=== PATIENT | female | born 1980 | race Caucasian/White ===

== ENCOUNTER 2017-04-23 09:32 | Emergency (ER) | payer OTHER, MEDICAID ==
[~2017-04-23] VITALS: Ht 160 cm; Wt 70.0 kg
[~2017-04-23 09:32] MED LIST: CYCL-36 PO; DICY10CA13 PO; LIPI20TA PO; LORA0.5T PO; LORA10TA PO; MECL-62 PO; MELA5TAB8 PO; MONT10TA2 PO; NAPR500 PO; OMEP20TA39 PO; SYMB160A INH; TAB-TAB PO
[2017-04-23 09:36] VITALS: BP 137/90; PULSE 94; RESP 15; TEMP 98.5; O2SAT 95
[2017-04-23] MEDS ORDERED: LORazepam 0.5 MG TAB PO ONE (12:00)
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
[2017-04-23] MEDS ORDERED: IBUP-232 PO (13:10)
[2017-04-23] MEDS ORDERED: MAPA500T13 PO (13:10)
== END 2017-04-23 13:27 | disposition home or self-care (01) ==
LOC: NEPK 09:32
DX: S16.1XXA Strain of muscle, fascia and tendon at neck level, initial encounter (principal); S40.022A Contusion of left upper arm, initial encounter; F41.9 Anxiety disorder, unspecified; V89.2XXA Person injured in unspecified motor-vehicle accident, traffic, initial encounter
CPT/HCPCS: 72125; 73030; 73060; 99285